=== PATIENT | female | born 1975 | race Caucasian/White ===

== ENCOUNTER → 2018-02-15 13:26 | Outpatient (CLI) | payer OTHER, SELFPAY ==
[2018-02-15 15:36] LABS: Mean Corp Hgb Conc 31.7 g/gl (32-36); Mean Corpuscular Hgb 26.2 pg (27.0-32.0); Mean Corpuscular Volume 82.5 fL (81-99); Mean Platelet Vol. 10.5 fl (6.2-12.0); Platelet Count 263 K/mm3 (150-450); RBC Distribution Width CV 15.4 % (11.6-14.6); RBC Distribution Width SD 46.1 fl (35.1-43.9); Red Blood Count 4.97 M/mm3 (4.2-5.4); White Blood Count 6.7 K/mm3 (4.4-11.0)
[2018-02-15 15:42] LABS: Scan Indicated on CBC? Y/N NO
[2018-02-15 15:53] LABS: Thyroid Stim Hormone (TSH) 1.71 uIU/mL (0.358-3.74)
[2018-02-15 16:05] LABS: Hemoglobin A1c 5.6 % (4.2-6.3)
[2018-02-20 13:06] LABS: HPV Reflexed? NOT INDICATED
== END ==
PROVIDERS: Visit Provider Obstetrics & Gynecology
DX: Z12.4 Encounter for screening for malignant neoplasm of cervix (principal); Z00.00 Encounter for general adult medical examination without abnormal findings
CPT/HCPCS: 36415; 83036; 84443; 85027; 87624; 88175; G0145

== ENCOUNTER → 2018-05-04 10:55 | Outpatient (CLI) | payer OTHER, SELFPAY ==
[2018-05-04 13:50] LABS: Pregnancy, Serum, hCG Quali. POSITIVE Negative (0-9 Nonpreg)
== END ==
PROVIDERS: Visit Provider Obstetrics & Gynecology
DX: N91.2 Amenorrhea, unspecified (principal)
CPT/HCPCS: 36415; 84702; 84703

== ENCOUNTER → 2018-05-11 13:43 | Outpatient (CLI) | payer OTHER, SELFPAY ==
[2018-05-11 17:24] LABS: Absolute Lymphocyte Count 1.79 X10^3/ul (0.83-4.51); Basophil# 0.01 X10^3/uL; Basophil% 0.2 % (0-1); Eosinophil# 0.09 X10^3/uL; Eosinophils% 1.4 % (0-5); Hematocrit 38.2 % (37-47); Hemoglobin 11.7 g/dl (12.0-15.0); Lymphocyte # 1.79 X10^3/ul (4.0); Lymphocyte % 27.9 % (19-41); Mean Corp Hgb Conc 30.6 g/gl (32-36); Mean Corpuscular Hgb 25.1 pg (27.0-32.0); Mean Platelet Vol. 10.7 fl (6.2-12.0); Monocyte# 0.53 X10^3/uL; Monocyte% 8.3 % (0-10); Neutrophil # 3.99 X10^3/uL (2.7-7.7); Platelet Count 242 K/mm3 (150-450); RBC Distribution Width CV 15.6 % (11.6-14.6); RBC Distribution Width SD 46.3 fl (35.1-43.9); Red Blood Count 4.66 M/mm3 (4.2-5.4); White Blood Count 6.4 K/mm3 (4.4-11.0)
[2018-05-11 17:27] LABS: POSITIVE COUNT NO; POSITIVE DIFFERENTIAL NO; POSITIVE MORPHOLOGY NO
[2018-05-11 18:16] LABS: HIV - WCH Non-Reactive (Nonreactive); Rubella IgG 262.2 IU/mL
[2018-05-12 07:39] LABS: Prenatal RPR NONREACTIVE (NONREACTIVE)
[2018-05-13 13:07] LABS: HEPATITIS B SURFACE AG Negative (Negative); Hep C Antibodies <0.1 s/co ratio (0.0-0.9)
== END ==
PROVIDERS: Visit Provider Obstetrics & Gynecology
DX: Z34.81 Encounter for supervision of other normal pregnancy, first trimester (principal)
CPT/HCPCS: 36415; 80307; 81002; 84443; 85025; 86703; 86762; 86803; 87340

== ENCOUNTER → 2018-10-06 06:56 | Outpatient (CLI) | payer OTHER, SELFPAY ==
[2018-10-06 07:34] LABS: Glucose GTT-Gestation. Fasting 92 mg/dL (<105)
[2018-10-06 09:26] LABS: Glucose GTT-Gestational 1 Hr 168 mg/dL (<190)
[2018-10-06 10:35] LABS: Glucose GTT-Gestational 2 Hr 134 mg/dL (<165)
[2018-10-06 11:49] LABS: Glucose GTT-Gestational 3 Hr 98 L (<145)
== END ==
PROVIDERS: Family Provider Family Medicine; PCP Family Medicine; Referring Provider Obstetrics & Gynecology; Visit Provider Obstetrics & Gynecology
DX: O24.912 Unspecified diabetes mellitus in pregnancy, second trimester (principal); Z3A.00 Weeks of gestation of pregnancy not specified
CPT/HCPCS: 36415; 82951; 82952

== ENCOUNTER 2018-11-15 13:05 | Outpatient (CLI) | payer OTHER, SELFPAY ==
[2018-11-15 13:21] VITALS: BMI 37.9
[2018-11-15 13:55] LABS: Hematocrit 39.8 % (37-47); Mean Corp Hgb Conc 32.7 g/dL (32-36); Mean Corpuscular Hgb 30.7 pg (27.0-32.0); Mean Corpuscular Volume 93.9 fL (81-99); Mean Platelet Vol. 9.7 fl (6.2-12.0); POSITIVE MORPHOLOGY YES; Platelet Count 161 K/mm3 (150-450); RBC Distribution Width SD 74.2 fl (35.1-43.9); Red Blood Count 4.24 M/mm3 (4.2-5.4); White Blood Count 7.9 K/mm3 (4.4-11.0)
[2018-11-15 14:00] LABS: International Normalized Ratio 0.9; Prothrombin Time (Protime)PT. 12.3 SECONDS (11.7-14.9)
[2018-11-15 14:01] LABS: Partial Thromboplast Time 24.5 Seconds (24.1-36.2)
[2018-11-15 14:10] LABS: Scan Indicated on CBC? Y/N YES- FLAGS NOTED
[2018-11-15 14:25] LABS: AST(SGOT) 20 U/L (15-37); Alanine Aminotransfer ALT/SGPT 33 U/L (13-56); Creatinine, Serum 0.57 mg/dL (0.55-1.02); EST Glomerular Filtration Rate 125 mL/min (>60); Est Glom Filt Rate - Afr Amer 151 mL/min (>60); Estimated Creatinine Clearance 113.29 ml/min; Uric Acid 4.7 mg/dL (2.6-6.0)
[2018-11-15 16:01] LABS: Protein, Urine (Random) 8.6 mg/dL (<11.9); Protein:Creat Ratio 345 mg/g CRE (0-200)
--- NOTE | 2018-12-01 08:50 | OB.TRI.NOTE ---
History of Present Illness Date of Service: 11/15/18 Was patient seen by the physician?: No Reason For Visit: R/O [facility] Date of Service: 11/15/18 Final ALDO: 12/11/18 Final ALDO Source: LMP Gestational age: 36 Weeks and 2 Days History of Present Illness: 36+ week intrauterine presents to labor and delivery for monitoring due to elevated blood pressures in the office. care has otherwise been uneventful except the patient had a prior section. Allergies pinapple Allergy (Uncoded 01/15/15 11:52) Rash Laboratory Studies: Laboratory Tests 11/15/18 11/15/18 11/15/18 Range/Units 15:10 13:40 13:40 WBC (4.4-11.0) K/mm3 RBC (4.2-5.4) M/mm3 Hgb (12.0-15.0) g/dL Hct (37-47) % MCV (81-99) fL MCH (27.0-32.0) pg MCHC (32-36) g/dL RDW Std Deviation (35.1-43.9) fl RDW Coeff of Audelia (11.6-14.6) % Plt Count (150-450) K/mm3 MPV (6.2-12.0) fl Differential Comment PT 12.3 (11.7-14.9) SECONDS INR 0.9 APTT 24.5 (24.1-36.2) Seconds Creatinine 0.57 (0.55-1.02) mg/dL Estim Creat Clear Calc 113.29 ml/min Est GFR (MDRD) Af Amer 151 (>60) mL/min Est GFR (MDRD) Non-Af 125 (>60) mL/min Uric Acid 4.7 (2.6-6.0) mg/dL AST 20 (15-37) U/L ALT 33 (13-56) U/L U Random Total Protein 8.6 (<11.9) mg/dL Urine Creatinine 24.90 (NO RANGE EST.) mg/dL Protein/Creatinin Ratio 345 H (0-200) mg/g CRE 11/15/18 Range/Units 13:40 WBC 7.9 (4.4-11.0) K/mm3 RBC 4.24 (4.2-5.4) M/mm3 Hgb 13.0 (12.0-15.0) g/dL Hct 39.8 (37-47) % MCV 93.9 (81-99) fL MCH 30.7 (27.0-32.0) pg MCHC 32.7 (32-36) g/dL RDW Std Deviation 74.2 H (35.1-43.9) fl RDW Coeff of Audelia 22.0 H (11.6-14.6) % Plt Count 161 (150-450) K/mm3 MPV 9.7 (6.2-12.0) fl Differential Comment PT (11.7-14.9) SECONDS INR APTT (24.1-36.2) Seconds Creatinine (0.55-1.02) mg/dL Estim Creat Clear Calc ml/min Est GFR (MDRD) Af Amer (>60) mL/min Est GFR (MDRD) Non-Af (>60) mL/min Uric Acid (2.6-6.0) mg/dL AST (15-37) U/L ALT (13-56) U/L U Random Total Protein (<11.9) mg/dL Urine Creatinine (NO RANGE EST.) mg/dL Protein/Creatinin Ratio (0-200) mg/g CRE NST - FHR Rate Baby A NST Reactive:: Yes Uterine Activity:: Occasional contraction noted on the monitor. Impression/Plan 36+ week intrauterine with gestational hypertension. Pre-E work-up was benign. Reactive nonstress test. Released to home with routine follow-up in several days in the office.
== END 2018-11-15 16:20 | disposition home or self-care (01) ==
LOC: WPOUT 13:10 → WP 13:10
PROVIDERS: Family Provider Family Medicine; PCP Family Medicine; Referring Provider Obstetrics & Gynecology; Visit Provider Obstetrics & Gynecology
DX: O13.3 Gestational [pregnancy-induced] hypertension without significant proteinuria, third trimester (principal); Z3A.36 36 weeks gestation of pregnancy; O34.219 Maternal care for unspecified type scar from previous cesarean delivery
CPT/HCPCS: 59025; 59050; 82565; 82570; 84156; 84450; 84460; 84550; 85027; 85610; 85730; 99218; G0378

== ENCOUNTER → 2018-11-20 12:48 | Outpatient (CLI) | payer OTHER, SELFPAY ==
[2018-11-15 13:21] VITALS: BMI 37.9
[2018-11-20 13:14] LABS: Hematocrit 40.1 % (37-47); Hemoglobin 13.2 g/dL (12.0-15.0); Mean Corp Hgb Conc 32.9 g/dL (32-36); Mean Corpuscular Hgb 31.6 pg (27.0-32.0); Mean Corpuscular Volume 95.9 fL (81-99); Mean Platelet Vol. 10.2 fl (6.2-12.0); POSITIVE MORPHOLOGY YES; Platelet Count 180 K/mm3 (150-450); RBC Distribution Width CV 21.4 % (11.6-14.6); RBC Distribution Width SD 75.4 fl (35.1-43.9); Red Blood Count 4.18 M/mm3 (4.2-5.4); White Blood Count 7.2 K/mm3 (4.4-11.0)
[2018-11-20 13:16] LABS: Scan Indicated on CBC? Y/N YES- FLAGS NOTED
[2018-11-20 13:35] LABS: BUN 9 mg/dL (7-18); Creatinine, Serum 0.63 mg/dL (0.55-1.02); Differential Comment SCANNED; Glucose 74 mg/dL (74-106)
[2018-11-20 13:36] LABS: ALB/GLOB Ratio 0.6 RATIO (0.9-2.4); AST(SGOT) 14 U/L (15-37); Alanine Aminotransfer ALT/SGPT 27 U/L (13-56); Albumin, Serum 2.6 g/dL (3.2-5.0); Alkaline Phosphatase 166 U/L (45-117); Anion Gap 8 (5-15); BUN/Creat Ratio 14.2 RATIO (10-20); Calcium,Total 10.4 mg/dL (8.5-10.1); Chloride 107 mmol/L (98-107); EST Glomerular Filtration Rate 110 mL/min (>60); Est Glom Filt Rate - Afr Amer 133 mL/min (>60); Protein, Total 6.6 g/dL (6.4-8.2); Sodium Level 139 mmol/L (136-145); Uric Acid 5.1 mg/dL (2.6-6.0)
== END ==
PROVIDERS: Visit Provider Obstetrics & Gynecology
DX: O13.9 Gestational [pregnancy-induced] hypertension without significant proteinuria, unspecified trimester (principal); Z3A.00 Weeks of gestation of pregnancy not specified
CPT/HCPCS: 36415; 80053; 84550; 85027

== ENCOUNTER 2018-12-01 10:05 | Inpatient (IN) | payer SELFPAY ==
[2018-12-01] VITALS (17 sets, daily range): BP systolic 108–159; BP diastolic 68–101; PULSE 74–94; RESP 14–18; TEMP 36.3–37.2; O2SAT 94–100; BMI 38.5
[2018-12-01] MEDS: Lactated Ringers 1,000 ML 999 ML IV (10:55)
[2018-12-01 11:14] LABS: Absolute Lymphocyte Count 1.71 X10^3/uL (0.83-4.51); Absolute Neutrophil Count 5.5 X10^3/uL (2.0-7.7); Basophil# 0.02 X10^3/uL; Basophil% 0.3 % (0-1); Eosinophil# 0.05 X10^3/uL; Eosinophils% 0.6 % (0-5); Hematocrit 41.5 % (37-47); Hemoglobin 13.7 g/dL (12.0-15.0); Lymphocyte # 1.71 X10^3/ul (4.0); Lymphocyte % 21.6 % (19-41); Mean Platelet Vol. 10.1 fl (6.2-12.0); Monocyte# 0.57 X10^3/uL; Monocyte% 7.2 % (0-10); NRBC Flagged by Analyzer 0 % (0-5); Neutrophil # 5.47 X10^3/uL (2.7-7.7); POSITIVE MORPHOLOGY YES; Platelet Count 173 K/mm3 (150-450); RBC Distribution Width SD 71.4 fl (35.1-43.9); Red Blood Count 4.28 M/mm3 (4.2-5.4); White Blood Count 7.9 K/mm3 (4.4-11.0)
[2018-12-01 11:17] LABS: Differential Indicated SCAN CRITERIA MET
[2018-12-01 11:24] LABS: Prothrombin Time (Protime)PT. 12.6 SECONDS (11.7-14.9)
[2018-12-01] MEDS: Lactated Ringers 1,000 ML 150 ML IV (11:58)
[2018-12-01] MEDS: Sodium Citrate/Citric Acid 30 ML UDC PO (11:58)
[2018-12-01] MEDS: Cefazolin 2 GM in 0.9% Normal Saline 100 ML IV (12:25)
--- NOTE | 2018-12-01 13:42 | OP.PCM_ITS ---
Delivery Classification: Scheduled Final ALDO: 12/11/18 Final ALDO Source: US <20 weeks Gestational age: 38 Weeks and 4 Days Indications: Gestational Hypertension, Prior Section, Desires Permanent Sterilization Description of Procedure: Surgeon: Eric Carrillo MD, FACOG Dispatcher Motor Vehicle: JOSEP Bryan Anesthesia: Denise Acuna CRNA Anesthesia: Spinal with Duramorph Pre-op Diagnosis: Prior Section, Gestational Hypertension, Desires Permanent Sterilization Post-Op Diagnosis: - -Prior Section, Gestational Hypertension, Desires Permanent Sterilization, Polyhydramnios Procedure: Repeat Low Transverse Cervical Caesarean Section And Bilateral Tubal Occlusion with Filshie Clips Findings: Viable male infant with Apgars of/9 in caput anterior presentation with clear amniotic fluid and normal three-vessel placenta. Copious amounts of fluid was noted. Indication: This is a 42-year-old who presents for a repeat at 38+ weeks gestation. Patient has had issues with gestational hypertension for the last several weeks maintained with labetalol. Recently her blood pressures have been even more elevated except when resting on her left side and she has started having headaches last few days. Given this it was decided proceed with repeat section at this time. care has otherwise been uneventful. The patient has been counseled regarding the risk and indications of this procedure including the possibility of bleeding infection and injury to surrounding structures such as bowel bladder. We also discussed the permanent nature of the tubal, the failure rate of 1 to 2%, and the availability of other nonpermanent control options. All questions were answered. Procedure: Patient was taken to the operating room where after spinal anesthesia was placed, the patient was prepped and draped in usual sterile fashion and a Bray catheter was placed. The abdomen was entered through the patient's prior Pfannenstiel incision and peritoneum was entered bluntly. After developing a bladder flap on the lower uterine segment a low transverse incision was made on the uterus and head was easily delivered onto the operative field the nose mouth and oropharynx were bulb suctioned. Subsequently a viable male infant was born with Apgars of 8/9. The was noted to cry move all extremities vigorously on the operative field. The umbilical cord was doubly clamped and ligated and handed to the nursery personnel who were present for the delivery. Placenta was delivered and noted to be 3 vessels and normal. Uterus was exteriorized and remaining placental tissue was removed. The uterus was then closed in 2 layers first with running locked 0 Vicryl suture followed by a second imbricating layer with 0 Vicryl suture. 0 Vicryl suture was then used in a horizontal mattress interrupted fashion to affect final hemostasis of the uterine incision line. Normal fallopian tubes and ovaries were visualized and Filshie clips were placed approximately 2 cm distal from the uterine fundus on each fallopian tube. The uterus was returned to the pelvis. Hemostasis was noted and rectus abdominis muscles were reapproximated in the midline with interrupted Number 0 Vicryl suture in a horizontal mattress fashion. Fascia was closed with running Number 1 PDS Strata fix suture. Subcutaneous tissue was irrigated with copious amouts of saline solution and then closed in 2 layers with running 3-0 Vicryl suture. Skin was closed with 4-0 monocryl suture in a running subcuticular fashion. Steri strips, telfa, and tape were placed across the incision. The patient tolerated the procedure well and was taken to the recovery room in satisfactory condition. Sponge, needle, and instrument counts were all reportedly correct. EBL was less than 500 cc. Cefotan 2 gms IV was given prior to the procedure. Spicemen to Pathology: None Complications: None Amniotic Fluid Description: Clear Placenta Disposition: [facility] Drain: Bray to straight drain Fluids Replaced: Crystalloid Cord Entanglement: None Cord Vessel Description: 3 Vessels Esitmated Blood Loss (ml): 500 cc Infant Gender: Male (1 minute): 8 (5 minute): 9 Pre-op Antibiotic Given: Cefotan 2gm IV x1 Pt instructed on risks of surgery: Bleeding, Infection, Failure Rate of 1 to 2%, Injury to surrounding structure(s) including bowel and bladder, Availability of other non-permanent control options Complications: None - Admit VTE Documentation VTE Present on Admission: Yes VTE Mechan Device Prophylaxis: SCD's
[2018-12-01] MEDS: Oxytocin 30 units/NS 500 ml 30 UNITS/500 ML IV.SOLN 167 UNITS IV (14:00)
[2018-12-01] MEDS: Nalbuphine 10 MG/ML Ampul 5 MG IV ×2 (17:36→20:53)
[2018-12-01] MEDS: Lactated Ringers 1,000 ML 100 ML IV (18:05)
[2018-12-01] MEDS: Ketorolac 30 MG/ML Syringe IV (19:17)
[2018-12-02] VITALS (10 sets, daily range): BP systolic 107–134; BP diastolic 56–88; PULSE 66–89; RESP 16–18; TEMP 35.9–36.7; O2SAT 96–100
[2018-12-02] MEDS: Ketorolac 30 MG/ML Syringe IV ×4 (00:08→19:14)
[2018-12-02] MEDS: 0.9% Saline Lock 10 ML Syringe 5 ML IV ×4 (00:09→19:14)
[2018-12-02 05:26] LABS: Hematocrit 37.3 % (37-47); Hemoglobin 12.2 g/dL (12.0-15.0); Mean Corp Hgb Conc 32.7 g/dL (32-36); Mean Corpuscular Hgb 32.3 pg (27.0-32.0); Mean Corpuscular Volume 98.7 fL (81-99); Mean Platelet Vol. 10.4 fl (6.2-12.0); POSITIVE MORPHOLOGY YES; Platelet Count 142 K/mm3 (150-450); RBC Distribution Width CV 20.2 % (11.6-14.6); Red Blood Count 3.78 M/mm3 (4.2-5.4); White Blood Count 8.3 K/mm3 (4.4-11.0)
[2018-12-02 05:27] LABS: Scan Indicated on CBC? Y/N YES- FLAGS NOTED
[2018-12-02 06:02] LABS: Differential Comment SCAN
[2018-12-02] MEDS: Hydrocortisone 2.5% Crm 1 APPLIC TOPICAL (07:59)
--- NOTE | 2018-12-02 11:19 | PCM.PN.OB ---
Subjective: Patient without complaints. Tolerating diet well. Positive flatus. Pain well controlled with minimal vaginal bleeding. Baby in the nursery for blood sugar issues. - Physical Exam Vital Signs Temp Pulse Resp BP Pulse Ox 97 F L 75 16 107/56 L 99 12/02/18 07:45 12/02/18 09:00 12/02/18 09:00 12/02/18 07:45 12/02/18 09:00 Oxygen Delivery Method Room Air Weight: 224 lb 3.2 oz Body Mass Index (BMI) 38.5 Intake and Output for Last 24 Hours 11/30/18 12/01/18 12/02/18 23:59 23:59 23:59 Intake Total 4250.83 / 4250.83 6 / 6 Output Total 2049 / 2049 1200 / 1200 Balance 2200.83 / 2200.83 -1194 / -1194 Laboratory Tests Past 24 Hrs 12/01/18 12/01/18 12/01/18 10:55 10:55 10:55 WBC RBC Hgb Hct MCV MCH MCHC RDW Std Deviation RDW Coeff of Audelia Plt Count MPV Differential Comment COMMENT PT 12.6 INR 1.0 APTT 24.0 L Blood Type O POSITIVE Antibody Screen NEGATIVE 12/02/18 05:15 WBC 8.3 RBC 3.78 L Hgb 12.2 Hct 37.3 MCV 98.7 MCH 32.3 H MCHC 32.7 RDW Std Deviation 73.0 H RDW Coeff of Audelia 20.2 H Plt Count 142 L MPV 10.4 Differential Comment SCAN PT INR APTT Blood Type Antibody Screen Wound is clean, dry, intact. Good urine output. Hemoglobin okay. Medical Necessity - Tobacco Use Smoking Status: Never smoker Assessment/Plan All Active Problems Pre-eclampsia added to pre-existing hypertension (Acute) Doing well post operative day #1 status post repeat and tubal ligation. Continuing present care.
[2018-12-03] MEDS: 0.9% Saline Lock 10 ML Syringe 5 ML IV ×3 (00:59→13:43)
[2018-12-03] MEDS: Ketorolac 30 MG/ML Syringe IV ×3 (00:59→13:43)
[2018-12-03 01:06] VITALS: BP 131/79; PULSE 73; RESP 18; TEMP 36.1
[2018-12-03 08:13] VITALS: BP 124/86; PULSE 82; RESP 16; TEMP 36.7; O2SAT 96
--- NOTE | 2018-12-03 11:32 | PCM.PN.OB ---
Subjective: Patient without complaints. Tolerating diet well. Positive flatus. Minimal vaginal bleeding. Wants to go home later today if the baby is able to go. Baby coming off IV in the next few hours. - Physical Exam Vital Signs Temp Pulse Resp BP Pulse Ox 98.0 F 82 16 124/86 H 96 12/03/18 08:13 12/03/18 08:13 12/03/18 08:13 12/03/18 08:13 12/03/18 08:13 Oxygen Delivery Method Room Air Weight: 224 lb 3.2 oz Body Mass Index (BMI) 38.5 Intake and Output for Last 24 Hours 12/01/18 12/02/18 12/03/18 23:59 23:59 23:59 Intake Total 4250.83 / 4250.83 6 / 6 Output Total 2049 / 2049 1200 / 1200 Balance 2200.83 / 2200.83 -1194 / -1194 Medical Necessity - Tobacco Use Smoking Status: Never smoker Assessment/Plan All Active Problems Pre-eclampsia added to pre-existing hypertension (Acute) Doing well post operative day #2 status post repeat section and tubal ligation. Home-going instructions given. Will discharge to home if baby is able to go.
[2018-12-03 13:38] VITALS: BP 142/91; PULSE 81; RESP 16; TEMP 36.8; O2SAT 98
[2018-12-03 16:18] VITALS: BP 140/82; PULSE 75
[2018-12-03] MEDS: Ibuprofen 600 MG Tablet PO (19:23)
[2018-12-03 20:05] VITALS: BP 136/74; BP 144/81; PULSE 75; RESP 18; TEMP 36.4
[2018-12-04 04:30] VITALS: BP 151/86; BP 152/85; PULSE 67; RESP 18; TEMP 36.3
[2018-12-04 06:00] VITALS: BP 146/79
[2018-12-04] MEDS: Ibuprofen 600 MG Tablet PO (08:35)
[2018-12-04 09:04] VITALS: BP 154/89; PULSE 80; RESP 18; TEMP 36.8
--- NOTE | 2018-12-04 09:08 | NURSING ---
0904- redness noted around perimeter of incision due to tape, denies itching or discomfort
--- NOTE | 2018-12-04 11:51 | PCM.PN.OB ---
Subjective: Patient without complaints. Tolerating diet well. Denies PIH symptoms. Baby needs to stay until tomorrow evening at minimum. - Physical Exam Vital Signs Temp Pulse Resp BP Pulse Ox 98.2 F 80 18 154/89 H 98 12/04/18 09:04 12/04/18 09:04 12/04/18 09:04 12/04/18 09:04 12/03/18 13:38 Oxygen Delivery Method Room Air Weight: 224 lb 3.2 oz Body Mass Index (BMI) 38.5 Intake and Output for Last 24 Hours 12/02/18 12/03/18 12/04/18 23:59 23:59 23:59 Intake Total 6 / 6 Output Total 1200 / 1200 Balance -1194 / -1194 Blood pressures moderately elevated. Good urine output. Medical Necessity - Tobacco Use Smoking Status: Never smoker Assessment/Plan All Active Problems Pre-eclampsia added to pre-existing hypertension (Acute) Doing well postoperative day #3 status post repeat section and tubal ligation. Will start low-dose labetalol as prior to delivery. Otherwise, continue present care.
[2018-12-04] MEDS: Labetalol 100 MG Tablet PO (12:48)
[2018-12-04 13:15] VITALS: BP 146/86; PULSE 80; RESP 18; TEMP 36.3
--- NOTE | 2018-12-04 13:46 | NURSING ---
1315- discharged to courtesy room
--- NOTE | 2018-12-17 06:46 | PCM.DC.BLA ---
Discharge Summary Date of Admission: 01/01/19 Date of Discharge: 01/04/19 Summary: Admission diagnosis: Prior Section, Desires Permanent Sterilization, and Gestational Hypertension Discharge diagnosis: Prior Section, Desires Permanent Sterilization, gestational Hypertension Procedure: Repeat Low Transverse Cervical Section and Bilateral Tubal Occlusion HPI: Uneventful care except for gestational hypertension. PE: Unremarkable. Hospital Course: The patient is a 42 year old who presented to L and D at 38+ weeks gestation. She subsequently had a repeat for prior section and gestational hypertension. Postoperatively she did well demonstrating a stable HGB on POD 1 and bowel fxn by POD 3 at which time it was felt she was ready for discharge. Homegoing Instruction: She was instructed not to drive for several days or if using narcotic pain medication, not to put anything in the vagina for 4 weeks, not to lift >25 lbs for 6 weeks and to call the office for an appointment in 2 weeks and 6 weeks. Discharge Medications: She was given a prescription for Oxycodone and Colace and also plans to use Aleve or Motrin or Tylenol at home as needed for pain and constipation. She was also instructed to continue her labetalol at home for her hypertension. - Physical Exam Vital Signs Temp Pulse Resp BP Pulse Ox 97.4 F L 80 18 146/86 H 98 12/04/18 13:15 12/04/18 13:15 12/04/18 13:15 12/04/18 13:15 12/03/18 13:38 Oxygen Delivery Method Room Air Weight: 224 lb 3.2 oz Body Mass Index (BMI) 38.5
--- NOTE | 2018-12-17 06:49 | DCINST_ITS ---
Discharge Diet: No Restrictions Discharge Activity: May not drive while taking narcotic pain medications., May Shower, May Take a Tub Bath May resume sexual activity in: 4-6 weeks Lifting Restrictions: 20 pounds Additional Activity Instructions:: Nothing in the vagina for 4-6 weeks. You may return to work/school in 6 weeks. Call your doctor if your incision/area has: Continuous Slow Oozing, Sudden Increased Bleeding, Increased Pain/ Swelling, Increased Redness, Foul Smelling Discharge Call your doctor if you observe: Fever of 101 or Higher, Inability to urinate, Inability to have a bowel movement, Using more than one pad per hour Instructions: Section () Additional Instructions: If you experience any of the following, contact your healthcare provider. * Bleeding that soaks a pad every hour for 2 hours * Fever 100.4 or higher * Unrelieved incision or abdominal pain * Swelling, redness, discharge or bleeding from your incision or episiotomy site * Your incision begins to separate * Problems urinating (including inability to urinate or burning while urinating). * Visual changes * Severe headache * Flu-like symptoms * Pain or redness in one of both of your breasts * Pain, warmth, tenderness or swelling in your legs, especially the calf area * Frequent nausea and vomiting * Symptoms of depression or anxiety If you experience any of the following, call 911 or go to the nearest Emergency Room. * Chest pain * Problems breathing * Seizure activity * Partial or complete paralysis of a body part, slurred speech, weakness or drooping of the face, or a sudden inability to walk or hold your balance Allergies/Adverse Reactions: Allergies pinapple Allergy (Mild, Uncoded 12/01/18 11:27) Rash Medications to take at Discharge Vits [Prenatabs FA] 1 tablet PO DAILY 01/15/15 RX: Labetalol [Trandate (Beta Gagan)] 100 mg PO BID 11/15/18 Docusate Sodium [Colace] 100 mg PO BID PRN PRN #60 cap 12/01/18 Iron 325 mg PO DAILY 12/01/18 The following prescriptions were given: Docusate Sodium [Colace] 100 mg PO BID PRN PRN #60 cap PRN Reason: Constipation Prescription Printed Follow-Up: Call to make an appointment with your doctor for an incision check in 1-2 weeks. You will also need a 6 week post- follow up appointment. Test results from this visit will be discussed in further detail at your follow- up appointment, if applicable. Please Follow Up With: Eric Carrillo MD - [phone] When: Call to make an appointment for an incision check in 2 weeks.
== END 2018-12-04 13:15 | disposition home or self-care (01) | DRG 785 ==
PROVIDERS: Admitting Provider Obstetrics & Gynecology; Referring Provider Obstetrics & Gynecology; Visit Provider Obstetrics & Gynecology
PROC: 10D00Z1 Extraction of Products of Conception, Low, Open Approach (ICD-10-PCS; CPT 59514; principal; 2018-12-01 11:45)
DX: O65.5 Obstructed labor due to abnormality of maternal pelvic organs (principal); O13.4 Gestational [pregnancy-induced] hypertension without significant proteinuria, complicating childbirth; O34.211 Maternal care for low transverse scar from previous cesarean delivery; O26.23 Pregnancy care for patient with recurrent pregnancy loss, third trimester; O30.003 Twin pregnancy, unspecified number of placenta and unspecified number of amniotic sacs, third trimester; Z3A.38 38 weeks gestation of pregnancy; Z30.2 Encounter for sterilization; Z37.3 Twins, one liveborn and one stillborn
CPT/HCPCS: 85025; 85027; 85610; 85730; 86850; 86900; 86901; 99218; J7120; A4216; G0378; J2405

== ENCOUNTER → 2021-12-23 | Outpatient (CLI) | payer BC, SELFPAY ==
[2021-12-23 12:02] LABS: Absolute Lymphocyte Count 2.32 X10^3/uL (0.83-4.51); Absolute Neutrophil Count 2.7 X10^3/uL (2.0-7.7); Basophil# 0.01 X10^3/uL; Basophil% 0.2 % (0-1); Eosinophil# 0.05 X10^3/uL; Eosinophils% 0.9 % (0-5); Hematocrit 41.1 % (37-47); Hemoglobin 12.6 g/dL (12.0-15.0); Lymphocyte # 2.32 X10^3/ul (0.83-4.51); Lymphocyte % 43.2 % (19-41); Mean Corp Hgb Conc 30.7 g/dL (32-36); Mean Corpuscular Volume 81.5 fL (81-99); Mean Platelet Vol. 10.4 fl (6.2-12.0); Monocyte# 0.31 X10^3/uL; Monocyte% 5.8 % (0-10); NRBC Flagged by Analyzer 0 % (0-5); Neutrophil # 2.67 X10^3/uL (2.7-7.7); Neutrophil % 49.7 % (47-70); Platelet Count 207 K/mm3 (150-450); RBC Distribution Width CV 15.7 % (11.6-14.6); RBC Distribution Width SD 46.2 fl (35.1-43.9); Red Blood Count 5.04 M/mm3 (4.2-5.4); White Blood Count 5.4 K/mm3 (4.4-11.0)
[2021-12-23 12:17] LABS: Estradiol 85.5 pg/mL; Follicle Stimulating Hormone 4.7 mIU/mL; Luteinizing Hormone 11.6 mIU/mL; T4 Free Direct 0.78 ng/dL (0.76-1.46); Thyroid Stim Hormone (TSH) 1.78 uIU/mL (0.358-3.74)
== END | disposition home or self-care (01) ==
LOC: WOBLAB 11:17
PROVIDERS: Visit Provider Obstetrics & Gynecology
DX: N93.9 Abnormal uterine and vaginal bleeding, unspecified (principal)
CPT/HCPCS: 82670; 83001; 83002; 84439; 84443; 85025

== ENCOUNTER → 2022-01-07 | Outpatient (CLI) | payer BC, SELFPAY ==
--- NOTE | 2022-01-07 11:45 | EMB_PTH ---
PATIENT: AGGIE DONG LOC: [facility] U#:[id number] AGE/SX: 46/F ROOM: RE01/07/[address]: Dr. Ifeanyi Surehs MD : 1975 BED: DIS: 01/07/2022 SPEC #: [id number] RECD: 01/07/22 11:49 STATUS: BLACK REBarbi #: [id number] SERENITY: 01/07/22 11:[address]: Ifeanyi Suresh DEPT: SURGICAL PATHOLOGY RECD BY: Cassia Lai Tissues: Endometrium, NOS Procedures: Surgery Specimen Level IV HEADER OPERATION: Endometrial biopsy PRE-OP DIAGNOSIS: Abnormal bleeding TISSUE SUBMITTED: Endometrial biopsy MICROSCOPIC DIAGNOSIS Endometrium, biopsy: Secretory endometrium. AM:josé 01/08/2022 MICROSCOPIC DESCRIPTION Slides are reviewed. GROSS DESCRIPTION Received in fixative is one container labeled with the patient's name and designated endometrial biopsy. The specimen consists of multiple irregular fragments of rosen-pink soft tissue that in aggregate measure 3 x 2.5 x 0.3 cm. The specimen is totally submitted in one cassette. / SJ:rg 01/07/2022 TC:5 CPT: 64887
== END | disposition home or self-care (01) ==
LOC: LABSPEC 11:40
PROVIDERS: Visit Provider Obstetrics & Gynecology
DX: N93.9 Abnormal uterine and vaginal bleeding, unspecified (principal)
CPT/HCPCS: 88305

== ENCOUNTER → 2022-08-30 | Outpatient (CLI) | payer BC, SELFPAY ==
--- NOTE | 2022-08-30 16:07 | RAD_ITS ---
EXAM: XR LEFT FOOT COMPLETE, 3 OR MORE VIEWS CLINICAL INDICATION: ANKLE PAIN TECHNIQUE: Frontal, lateral and oblique views of the left foot. COMPARISON: Left ankle radiographs of this date. FINDINGS: BONES/JOINTS: Small plantar calcaneal spur. No acute fracture. No subluxation. Normal alignment. Preservation of the joint space. No sclerotic or destructive changes observed. SOFT TISSUES: Unremarkable. No soft tissue swelling or gas. No radiopaque foreign body. RAD/Foot min 3 Views IMPRESSION: Small plantar calcaneal spur, otherwise negative. No acute osseous or articular abnormality identified. Electronically Signed: Campos Nunez MD at 22:18 EDT ,
--- NOTE | 2022-08-30 16:08 | RAD_ITS ---
EXAM: XR LEFT TIBIA AND FIBULA, 2 VIEWS CLINICAL INDICATION: pain TECHNIQUE: Frontal and lateral views of the left tibia and fibula. COMPARISON: Ankle radiographs of this date. FINDINGS: BONES/JOINTS: Small plantar calcaneal spur. No acute fracture. No subluxation. Normal alignment. Preservation of the joint space. No sclerotic or destructive changes observed. SOFT TISSUES: Unremarkable. No soft tissue swelling or gas. No radiopaque foreign body. RAD/Tibia & Fibula 2 Views IMPRESSION: Small plantar calcaneal spur. No acute osseous abnormality. Electronically Signed: Campos Nunez MD at 22:16 EDT ,
--- NOTE | 2022-08-30 16:18 | RAD_ITS ---
EXAM: XR LEFT ANKLE COMPLETE, 3 OR MORE VIEWS CLINICAL INDICATION: PAIN TECHNIQUE: Frontal, lateral and oblique views of the left ankle. COMPARISON: Left tibia/fibula radiographs and left foot radiographs of this date. FINDINGS: BONES/JOINTS: Small plantar calcaneal spur. No acute fracture. No subluxation. Normal alignment. Preservation of the joint space. No sclerotic or destructive changes observed. SOFT TISSUES: Unremarkable. No soft tissue swelling or gas. No radiopaque foreign body. RAD/Ankle min 3 Views IMPRESSION: Small plantar calcaneal spur. No acute abnormality. Electronically Signed: Campos Nunez MD at 22:17 EDT ,
== END | disposition home or self-care (01) ==
PROVIDERS: PCP Family Medicine; Referring Provider Family Medicine; Visit Provider Family Medicine
DX: S82.402A Unspecified fracture of shaft of left fibula, initial encounter for closed fracture (principal); M25.579 Pain in unspecified ankle and joints of unspecified foot
CPT/HCPCS: 73590; 73610; 73630

== ENCOUNTER → 2023-03-09 | Outpatient (CLI) | payer BC, SELFPAY ==
[2023-03-09 10:36] LABS: Hematocrit 38.2 % (37-47); Hemoglobin 10.7 g/dL (12.0-15.0); Mean Corpuscular Hgb 21.2 pg (27.0-32.0); Mean Corpuscular Volume 75.6 fL (81-99); Mean Platelet Vol. 10.6 fl (6.2-12.0); Platelet Count 232 K/mm3 (150-450); RBC Distribution Width SD 50.9 fl (35.1-43.9); Red Blood Count 5.05 M/mm3 (4.2-5.4); White Blood Count 4.9 K/mm3 (4.4-11.0)
[2023-03-09 10:42] LABS: Vitamin D,25 Hydroxy 16.9 ng/mL
[2023-03-09 10:51] LABS: Hemoglobin A1c 5.2 % (3.8-5.6)
[2023-03-09 11:02] LABS: ALB/GLOB Ratio 1.1 RATIO (0.9-2.4); AST(SGOT) 25 U/L (15-37); Alanine Aminotransfer ALT/SGPT 42 U/L (13-56); Albumin, Serum 3.9 g/dL (3.2-5.0); Alkaline Phosphatase 140 U/L (45-117); Anion Gap 3 (5-15); BUN 14 mg/dL (7-18); BUN/Creat Ratio 18.9 RATIO (10-20); Calcium,Total 10.4 mg/dL (8.5-10.1); Chloride 111 mmol/L (98-107); Cholesterol 219 mg/dL (200); Creatinine, Serum 0.74 mg/dL (0.55-1.02); EST Glomerular Filtration Rate 90 mL/min (>60); Est Glom Filt Rate - Afr Amer 109 mL/min (>60); Ferritin 5 ng/mL (8-252); Globulin 3.6 g/dL (2.2-4.2); Glucose 115 mg/dL (74-106); High Density Lipoprotein 60 mg/dL; Iron 17 ug/dL (50-170); Potassium 3.8 mmol/L (3.5-5.1); Protein, Total 7.5 g/dL (6.4-8.2); Sodium Level 139 mmol/L (136-145); Thyroid Stim Hormone (TSH) 1.22 uIU/mL (0.358-3.74); Triglycerides 52 mg/dL; Very Low Density Lipoprotein 10 mg/dL (5-40)
== END | disposition home or self-care (01) ==
LOC: MFPLAB 08:34
PROVIDERS: PCP Family Medicine; Visit Provider Family Medicine
DX: E66.9 Obesity, unspecified (principal); N92.0 Excessive and frequent menstruation with regular cycle; E28.2 Polycystic ovarian syndrome; Z13.220 Encounter for screening for lipoid disorders; Z13.21 Encounter for screening for nutritional disorder
CPT/HCPCS: 36415; 80053; 80061; 82306; 82533; 82728; 83036; 83540; 84443; 85027

== ENCOUNTER → 2023-03-18 | Outpatient (CLI) | payer BC, SELFPAY ==
--- NOTE | 2023-03-18 13:17 | BI_ITS ---
MAMMOGRAPHY - BILATERAL SCREENING REASON FOR EXAM: Female, 47 years old. Routine annual screening examination. PERTINENT HISTORY: Non-contributory. TECHNIQUE: Digital bilateral breast panakj (3D mammographic acquisition) in the CC and MLO projections. 2-D mediolateral oblique (MLO) and craniocaudad (CC) views of both breasts were obtained. CAD: Full Field Digital Mammography with Computer Added Detection was performed. COMPARISON: None. Baseline examination. FINDINGS: Breast Composition: There are scattered areas of fibroglandular density. There are no dominant masses or suspicious calcifications. Small benign-appearing bilateral axillary nodes. No other significant abnormalities are identified. BI/SCRN MAMM (CAD)W/PANKAJ BILAT IMPRESSION: Negative screening mammogram. Yearly followup mammogram recommended. (A) ASSESSMENT CATEGORY: BIRADS Category 2: Benign. A letter regarding these results will be sent to the patient by the facility within 30 days. Approximately 10% of breast cancers are not detected by mammography. A normal mammogram should not delay biopsy of a clinically suspicious abnormality. [id number] Electronically Signed: Meir Burnett MD at 14:23 EST ,
== END | disposition home or self-care (01) ==
LOC: OPBI 13:15
PROVIDERS: PCP Family Medicine; Referring Provider Family Medicine; Visit Provider Family Medicine
DX: Z12.31 Encounter for screening mammogram for malignant neoplasm of breast (principal)
CPT/HCPCS: 77063; 77067

== ENCOUNTER 2023-04-25 12:57 | Outpatient (RCR) | payer BC, SELFPAY | END 2023-05-11 23:59 | LOC: NS 12:57 | PROVIDERS: PCP Family Medicine; Referring Provider Family Medicine; Visit Provider Family Medicine | DX: Z71.3 Dietary counseling and surveillance (principal); E66.9 Obesity, unspecified | CPT/HCPCS: 97802 ==

== ENCOUNTER 2023-05-23 12:57 | Outpatient (RCR) | payer BC, SELFPAY | END 2023-06-09 23:59 | LOC: NS 12:57 | PROVIDERS: PCP Family Medicine; Referring Provider Family Medicine; Visit Provider Family Medicine | DX: Z71.3 Dietary counseling and surveillance (principal); E66.9 Obesity, unspecified; Z68.31 Body mass index [BMI] 31.0-31.9, adult | CPT/HCPCS: 97803 ==

== ENCOUNTER 2023-06-20 13:10 | Outpatient (RCR) | payer BC, SELFPAY | END 2023-07-10 23:59 | LOC: NS 13:10 | PROVIDERS: PCP Family Medicine; Referring Provider Family Medicine; Visit Provider Family Medicine | DX: Z71.3 Dietary counseling and surveillance (principal); E66.9 Obesity, unspecified; Z68.31 Body mass index [BMI] 31.0-31.9, adult | CPT/HCPCS: 97803 ==

== ENCOUNTER 2024-07-09 16:02 | Emergency (ER) | payer BC, SELFPAY ==
[2024-07-09 16:03] VITALS: BP 131/100; PULSE 131; RESP 115; TEMP 39.3; O2SAT 100
--- NOTE | 2024-07-09 16:45 | EDS_ITS ---
HPI History of Present Illness Chief Complaint: General Illness Informant: patient Onset/Context/Timing Onset: Days Context: Gradual Onset Timing: Continuous Quality: Aching Location: Generalized Worsened by: Nothing Relieved by: Laying in a bathtub Narrative Narrative: Patient presents with generalized aching and chills. Patient states she was seen at urgent care yesterday was diagnosed with a urinary tract infection. Patient states she has been taking the antibiotics that were prescribed. Patient states she does not feel any better. Patient also admits to some rhinorrhea. Patient admits to headache and back pain. Patient admits to some nausea, vomiting, and abdominal pain. Patient denies any chest pain or shortness of breath. [facility] Medical History No active medical problems no medical history Home Medications ?Medication ?Instructions ?Recorded ?Last Taken ?Type nitrofurantoin 100 mg PO Q12H 7 days #14 ca ps 07/08/24 Unknown Rx monohydrate/macrocrystals 100 mg capsule (Macrobid) Allergy/AdvReac Type Severity Reaction Status Date / Time pineapple Allergy Mild Rash Verified 07/09/24 16:03 Family History Other Heart disease Surgical History History of 2 sections Social History household members: spouse housing: house Smoking Status: Never smoker ROS ROS ED Constitutional Constitutional ED: Reports chills and subjective; Denies fever(s) Eyes Eyes: Denies blurry vision or change in vision ENT ENT ED: Reports rhinorrhea; Denies sore throat Cardiovascular Cardiovascular: Denies chest pain or palpitations Respiratory/Chest Respiratory/Chest: Denies cough or dyspnea Gastrointestinal Gastrointestinal: Reports abdominal pain, nausea and vomiting Genitourinary Genitourinary ED: Reports hematuria; Denies dysuria Musculoskeletal Musculoskeletal: Reports back pain; Denies neck pain Integumentary Denies abscess or rash Neurologic Neurologic: Reports headache(s); Denies weakness Allergic/Immunologic Allergic/Immunologic ED: Denies mouth swelling or urticaria EXAM Physical Exam Const Vital Signs: 07/09/24 16:03 07/09/24 16:25 07/09/24 17:35 Temperature 102.8 F H Temperature Source Oral Pulse Rate 131 H Pulse Rate [Lying] 109 H Pulse Rate [Sitting (for 1 minute prior to obtaining)] 117 H Pulse Rate [Standing (for 1 minute prior to obtaining)] 121 H Respiratory Rate 115 H Respiratory Effort Normal Non-Labored Respiratory Pattern Normal Blood Pressure 131/100 H Blood Pressure [Lying] 119/66 Blood Pressure [Sitting (for 1 minute prior to obtaining)] 109/72 Blood Pressure [Standing (for 1 minute prior to obtaining)] 107/74 Blood Pressure Mean 110 Blood Pressure Mean [Lying] 83 Blood Pressure Mean [Sitting (for 1 minute prior to obtaining)] 84 Blood Pressure Mean [Standing (for 1 minute prior to obtaining)] 85 Pulse Ox 100 Oxygen Delivery Method Room Air 07/09/24 18:02 07/09/24 18:16 Temperature 99.4 F H Temperature Source Oral Pulse Rate Pulse Rate [Lying] Pulse Rate [Sitting (for 1 minute prior to obtaining)] Pulse Rate [Standing (for 1 minute prior to obtaining)] Respiratory Rate Respiratory Effort Respiratory Pattern Blood Pressure 106/62 Blood Pressure [Lying] Blood Pressure [Sitting (for 1 minute prior to obtaining)] Blood Pressure [Standing (for 1 minute prior to obtaining)] Blood Pressure Mean 76 Blood Pressure Mean [Lying] Blood Pressure Mean [Sitting (for 1 minute prior to obtaining)] Blood Pressure Mean [Standing (for 1 minute prior to obtaining)] Pulse Ox 97 Oxygen Delivery Method Room Air Positive well nourished and well developed General Appearance ED: well developed and NAD HEENT Reports moist mucous membranes Neck supple and no JVD Resp normal respiratory effort and clear to auscultation bilaterally Cardio regular rate and regular rhythm GI non-distended Palpation: soft and tender LLQ, RLQ and suprapubic; Negative for guarding or rebound tenderness present Neuro oriented x3, CN's II-XII intact bilaterally and no sensory deficits noted Sensorium / Orientation: alert Motor Exam: strength 5/5 throughout Psych mental status grossly normal MDM MDM MDM Narrative Medical decision making narrative: Differential diagnosis includes urinary tract infection, electrolyte abnormality, dehydration, viral illness, pneumonia, and bronchitis. CBC will be obtained to assess for leukocytosis and anemia. Basic metabolic profile will be obtained to assess for electrolyte abnormality and renal function. Chest x-ray will be obtained to assess for pneumonia and bronchitis. COVID-19, influenza, and RSV PCR will be obtained to assess for viral illness. Lab Data Attestation: I reviewed the patient's lab results. Lab results narrative: CBC was reviewed. There is a slight leukocytosis of 11.2. There is a mild anemia with a hemoglobin of 11.3 and hematocrit 33.7. Platelets were slightly low at 139. Basic metabolic profile showed a potassium of 3.1. The remainder is within normal limits. Labs: Laboratory Results - last 24 hr 07/09/24 16:53 WBC 11.2 H RBC 4.35 Hgb 11.3 L Hct 33.7 L MCV 77.5 L MCH 26.0 L MCHC 33.5 RDW Std Deviation 52.3 H RDW Coeff of [place] 18.8 H Plt Count 139 L MPV 10.6 Immature Gran % (Auto) 0.400 Neut % (Auto) 84.8 H Lymph % (Auto) 4.2 L [place] % (Auto) 10.4 H Eos % (Auto) 0.0 Baso % (Auto) 0.2 Absolute Neuts (auto) 9.5 H Absolute Lymphs (auto) 0.47 L Nucleated RBC % 0 Sodium 133 Potassium 3.1 L Chloride 99 Carbon Dioxide 21.6 Anion Gap 12 BUN 11 Creatinine 0.80 Estim Creat Clear Calc 89.57 Est GFR (MDRD) Non-Af 92 BUN/Creatinine Ratio 13.3 Glucose 115 H Calcium 10.3 Radiography Chest X-Ray - ED: 2 View, Read by ED Physician, Read by Radiologist and No Acute Disease Diagnostic Testing: Clinical Impression(s) from Imaging Studies Chest X-Ray 07/09/24 17:00 IMPRESSION: NEGATIVE CHEST Reading Location: [facility] PA and lateral chest x-ray was obtained. There are 2 views. On my independent interpretation, lung hatch are clear. There is normal cardiac silhouette. Bony thorax is normal. There is no acute process noted. Radiologist also interpreted the x-ray and agrees. Treatment and Re-Evaluation :: Patient was given a dose of Tylenol here. Patient was given IV fluids. Patient was given a dose of oral potassium here. Patient was advised of her findings. Patient was instructed to drink plenty of fluids. Patient was instructed to continue Tylenol as needed for any pain or fevers. Patient was instructed to finish her antibiotics as prescribed. Patient was instructed to follow-up with her primary care physician in 5 to 7 days. Patient understood and was agreeable with the plan. All questions were answered. Discharge Plan Triage Chief Complaint: General Illness ED Provider: Bo Ring Dx/Rx/DC Orders Clinical Impression: UTI (urinary tract infection), Fever, Hypokalemia Instructions: ED Hypokalemia, ED Cystitis Female Adult Prescriptions: No Action nitrofurantoin monohyd/m-cryst [Macrobid] 100 mg capsule 100 mg PO Q12H 7 Days Qty: 14 0RF Rx Instructions: must administer with a meal/food Primary Care Provider: Randell Bo Referrals: Randell Bo MD [Primary Care Provider] - 5-7 Days Print Language: Serbian Disposition Disposition: Home, Self Care
[2024-07-09] MEDS: 0.9% Normal Saline (1000mL) 1,000 ML 1000 ML IV (16:55)
[2024-07-09] MEDS: Acetaminophen 500 MG Tablet 1000 MG PO (16:55)
--- NOTE | 2024-07-09 17:00 | RAD_ITS ---
PROCEDURE: CHEST PA AND LATERAL 07/09/2024 REASON FOR EXAM: 48-year-old female, WEAKNESS, headache and chills, nausea and vomiting, body aches TECHNIQUE: Frontal and lateral views of the chest. COMPARISON: None. FINDINGS: Hardware: None. Heart: The heart size is normal. Mediastinum: The mediastinal contour is unremarkable. Lungs: No focal consolidation, pleural effusion or pneumothorax. Bones: The bones are unremarkable. RAD/Chest PA and Lateral IMPRESSION: NEGATIVE CHEST Reading Location: [id number]
[2024-07-09 17:04] LABS: Absolute Lymphocyte Count 0.47 X10^3/uL (0.83-4.51); Absolute Neutrophil Count 9.5 X10^3/uL (2.0-7.7); Basophil# 0.02 X10^3/uL; Basophil% 0.2 % (0-1); Hematocrit 33.7 % (37-47); Hemoglobin 11.3 g/dL (12.0-15.0); Lymphocyte # 0.47 X10^3/ul (0.83-4.51); Lymphocyte % 4.2 % (19-41); Mean Corp Hgb Conc 33.5 g/dL (32-36); Mean Corpuscular Volume 77.5 fL (81-99); Mean Platelet Vol. 10.6 fl (6.2-12.0); Monocyte# 1.16 X10^3/uL; Monocyte% 10.4 % (0-10); NRBC Flagged by Analyzer 0 % (0-5); Neutrophil # 9.51 X10^3/uL (2.7-7.7); Neutrophil % 84.8 % (47-70); POSITIVE DIFFERENTIAL YES; Platelet Count 139 K/mm3 (150-450); RBC Distribution Width CV 18.8 % (11.6-14.6); RBC Distribution Width SD 52.3 fl (35.1-43.9); Red Blood Count 4.35 M/mm3 (4.2-5.4); White Blood Count 11.2 K/mm3 (4.4-11.0)
[2024-07-09 17:29] LABS: Anion Gap 12 (5-15); BUN 11 mg/dL (4-19); BUN/Creat Ratio 13.3 RATIO (10-20); Calcium,Total 10.3 mg/dL (7.6-11.0); Carbon Dioxide 21.6 mmol/L (21.0-32.0); Chloride 99 mmol/L (98-108); EST Glomerular Filtration Rate 92 (>60); Estimated Creatinine Clearance 89.57 ml/min (50-250); Glucose 115 mg/dL (70-99); Potassium 3.1 mmol/L (3.3-5.1); Sodium Level 133 mmol/L (133-145)
[2024-07-09 17:35] VITALS: BP 107/74; BP 109/72; BP 119/66; PULSE 109; PULSE 117; PULSE 121
[2024-07-09 18:02] VITALS: BP 106/62; O2SAT 97
[2024-07-09 18:16] VITALS: TEMP 37.4
[2024-07-09] MEDS: Potassium Chloride Oral Tablet 20 MEQ 40 MEQ PO (19:04)
[2024-07-09 19:08] VITALS: BP 102/74; PULSE 68; RESP 16; TEMP 36.9; O2SAT 97
== END 2024-07-09 19:08 | disposition home or self-care (01) ==
PROVIDERS: Emergency Provider Emergency Medicine; PCP Family Medicine; Visit Provider Emergency Medicine
DX: N39.0 Urinary tract infection, site not specified (principal); R51.9 Headache, unspecified; E87.6 Hypokalemia; R11.2 Nausea with vomiting, unspecified; R50.9 Fever, unspecified
CPT/HCPCS: 71046; 80048; 85025; 87631; 96360; 99285; A4216

== ENCOUNTER → 2024-08-02 | Outpatient (CLI) | payer BC, SELFPAY | END | disposition home or self-care (01) | LOC: LABSPEC 11:28 | PROVIDERS: PCP Family Medicine; Visit Provider Family Medicine | DX: N39.0 Urinary tract infection, site not specified (principal) | CPT/HCPCS: 87086; 87088; 87186 ==

== ENCOUNTER → 2024-10-04 | Outpatient (CLI) | payer BC, SELFPAY ==
[2024-10-04 10:36] LABS: Absolute Lymphocyte Count 1.91 X10^3/uL (0.83-4.51); Absolute Neutrophil Count 2.1 X10^3/uL (2.0-7.7); Basophil# 0.02 X10^3/uL; Basophil% 0.4 % (0-1); Eosinophil# 0.11 X10^3/uL; Eosinophils% 2.4 % (0-5); Hematocrit 35.1 % (37-47); Hemoglobin 10.5 g/dL (12.0-15.0); Lymphocyte # 1.91 X10^3/ul (0.83-4.51); Lymphocyte % 41.8 % (19-41); Mean Corp Hgb Conc 29.9 g/dL (32-36); Mean Corpuscular Hgb 23.2 pg (27.0-32.0); Mean Corpuscular Volume 77.5 fL (81-99); Mean Platelet Vol. 9.8 fl (6.2-12.0); Monocyte# 0.38 X10^3/uL; Monocyte% 8.3 % (0-10); NRBC Flagged by Analyzer 0 % (0-5); Neutrophil # 2.13 X10^3/uL (2.7-7.7); Neutrophil % 46.7 % (47-70); Platelet Count 255 K/mm3 (150-450); RBC Distribution Width CV 15.5 % (11.6-14.6); RBC Distribution Width SD 43.3 fl (35.1-43.9); Red Blood Count 4.53 M/mm3 (4.2-5.4); White Blood Count 4.6 K/mm3 (4.4-11.0)
[2024-10-04 11:40] LABS: ALB/GLOB Ratio 1.6 RATIO (0.9-2.4); AST(SGOT) 20 U/L (<=31); Alanine Aminotransfer ALT/SGPT 22 U/L (<=34); Albumin, Serum 4.2 g/dL (3.5-5.0); Alkaline Phosphatase 103 U/L (35-104); Anion Gap 9 (5-15); BUN 10 mg/dL (4-19); BUN/Creat Ratio 14.3 RATIO (10-20); Calcium,Total 10.6 mg/dL (7.6-11.0); Carbon Dioxide 23.9 mmol/L (21.0-32.0); Chloride 106 mmol/L (98-108); Cholesterol 190 mg/dL (<=200); Creatinine, Serum 0.71 mg/dL (0.70-1.20); EST Glomerular Filtration Rate 105 (>60); Globulin 2.6 g/dL (2.2-4.2); Glucose 104 mg/dL (70-99); High Density Lipoprotein 58 mg/dL; Low Density Lipoprotein Calc. 119 mg/dL; Potassium 3.7 mmol/L (3.3-5.1); Protein, Total 6.8 g/dL (5.9-8.4); Sodium Level 139 mmol/L (133-145); Total Bilirubin 0.38 mg/dL (0.00-1.30); Triglycerides 63 mg/dL; Very Low Density Lipoprotein 13 mg/dL (5-40); Vitamin D,25 Hydroxy 29.7 ng/mL (30-100); cholesterol:hdl ratio screen 3.25
[2024-10-04 13:24] LABS: Hemoglobin A1c 5.2 % (<=5.6)
--- OUTSIDE RECORDS SUMMARY | 2024-10-04 19:24 | XMS RPT_ITS | CCD ---
Author Organization [facility] CliniSywv Care Team Providers Care Clinical Genetics Laboratory Chief Name Role Phone WIL MCLAINIAN Attending Unavailable BERNABE GARCIA Primary Care Unavailable Dr. Wisam Bo Primary Care Provider [phone] Dr. Wisam Bo Referring Provider CATHERINE Samson Attending Provider Dr. Wisam Bo Primary Care Provider Dr. Wisam Bo Referring Provider CATHERINE Samson Attending Provider Dr. Randell Bo MD Primary Care Provider Dr. Randell Bo MD Referring Provider Eric Jackson Attending Provider Dr. Bo Ring DO Emergency Provider Dr. Bo Ring DO Attending Provider Dr. Bernabe Garcia MD Attending Provider Bo Ring Attending Unavailable Randell Bo Primary Care Unavailable Bernabe Garcia Attending Unavailable Randell Bo Primary Care Unavailable Randell Bo Primary Care Unavailable Randell Bo Referring Unavailable Roof Eric ART Attending Unavailable Allergies Allergy Classification Reported Allergen(s) Allergy Type Date of Onset Reaction(s) Facility (8 sources) pineapple Allergy to substance 01-29-2022 [facility] (1 source) pineapple Drug allergy (disorder) 07-09-2024 [facility] Repository Medications Current Medications Medication Drug Class(es) Dates Sig (Normalized) Sig (Original) [place] (Nk) (2 sources) Start: 05-29-2023 [place] (Nk) A ctive May 29, 2023 1:00am Start: 05-29-2023 [place] (Nk) A ctive May 29, 2023 12:00am Completed/Discontinued Medications Medication Drug Class(es) Dates Sig (Normalized) Sig (Original) docusate sodium 100 mg oral capsule (10 sources) Start: 12-01-2018 End: 05-29-2023 take 1 capsule by mouth twice daily as needed for constipation Docusate Sodium 100 MG capsule Discontinued 100 mg PO TWICE DAILY NEEDED as needed for Constipation 60 December 01, 2018 12:00am May 29, 2023 12:19pm Iron (10 sources) Start: 12-01-2018 End: 05-29-2023 take 325 mg by mouth once daily Iron Discontinued 325 mg PO DAILY December 01, 2018 12:00am May 29, 2023 12:19pm Start: 12-01-2018 End: 05-29-2023 take 325 mg by mouth once daily Iron Discontinued 325 MG PO DAILY December 01, 2018 12:00am May 29, 2023 12:19pm Start: 12-01-2018 End: 05-29-2023 take 325 mg by mouth once daily Iron Discontinued 325 MG PO DAILY November 30, 2018 11:00pm May 29, 2023 11:19am Start: 12-01-2018 take 325 mg by mouth once daily Iron Active 325 MG PO DAILY November 30, 2018 11:00pm Start: 12-01-2018 take 325 mg by mouth once daily Iron Active 325 MG PO DAILY December 01, 2018 12:00am labetalol hydrochloride 200 mg oral tablet (20 sources) beta-Adrenergic Gagan Start: 11-15-2018 End: 05-29-2023 Labetalol 200 MG tablet Discontinued 100 mg PO TWICE A DAY November 15, 2018 1:57pm May 29, 2023 12:19pm Start: 11-15-2018 End: 05-29-2023 take 100 mg by mouth twice daily Labetalol Discontinued 100 MG PO TWICE A DAY November 15, 2018 1:57pm May 29, 2023 12:19pm Start: 01-15-2015 End: 11-15-2018 take 1 tablet by mouth twice daily Labetalol 200 MG tablet Discontinued 200 mg PO TWICE A DAY 60 January 15, 2015 12:00am November 15, 2018 1:57pm nitrofurantoin, macrocrystals 25 mg / nitrofurantoin, monohydrate 75 mg oral capsule (2 sources) Nitrofuran Antibacterial Start: 07-08-2024 End: 07-15-2024 take 1 capsule by mouth every twelve hours at mealtime Nitrofurantoin Monohyd/M-Cryst (Macrobid) 100 mg capsule Discontinued 100 mg PO Q12H 14 7 July 08, 2024 12:00am July 14, 2024 12:00am July 15, 2024 12:14am must administer with a meal/food oxyCODONE hydrochloride 5 mg oral tablet (10 sources) Opioid Agonist Start: 12-01-2018 End: 12-09-2018 take 1 tablet by mouth every six hours as needed for pain Oxycodone 5 MG tablet Discontinued 5 mg PO EVERY 6 HOURS NEEDED as needed for Severe Pain (6-10/10) 20 December 01, 2018 December 07, 2018 12:00am December 09, 2018 12:09am Vit,[id number] c (Prenatabs Fa) 1 TABLET tablet (10 sources) Start: 01-15-2015 End: 05-29-2023 take 1 tablet by mouth once daily Vit,[id number] ic (Prenatabs Fa) 1 TABLET tablet Discontinued 1 {tbl} PO DAILY January 15, 2015 12:00am May 29, 2023 12:19pm Start: 01-15-2015 End: 05-29-2023 take 1 tablet by mouth once daily Vit,[id number]-Ecqil (Prenatab s Fa) 1 TABLET tablet Discontinued 1 TABLET PO DAILY January 15, 2015 12:00am May 29, 2023 12:19pm Start: 01-15-2015 End: 05-29-2023 take 1 tablet by mouth once daily Vit,[id number]-Uiovj (Prenatab s Fa) 1 TABLET tablet Discontinued 1 TABLET PO DAILY January 14, 2015 11:00pm May 29, 2023 11:19am Start: 01-15-2015 take 1 tablet by yanni th once daily Vit,[id number]-Gccj-Prqdu (Prenatab s Fa) 1 TABLET tablet Active 1 TABLET PO DAILY January 14, 2015 11:00pm Start: 01-15-2015 take 1 tablet by yanni th once daily Vit,[id number]-Hqnvk (Prenatab s Fa) 1 TABLET tablet Active 1 TABLET PO DAILY January 15, 2015 12:00am sulfacetamide sodium 100 mg/ml ophthalmic solution (8 sources) Sulfonamide Antibacterial Start: 02-12-2022 End: 02-19-2022 Sulfacetamide Sodium 10 % drops Discontinued 1 NMA OPHTHALMIC Q3H 15 7 February 12, 2022 12:00am February 18, 2022 1:00am February 19, 2022 1:05am Problems Active Problems Problem Classification Problem Date Documented Da te Episodic/Chronic Fever of unknown origin (3 sources) Fever; Translations: [Fever, unspecified] Onset: 07-11-2024 07-09-2024 Episodic Fluid and electrolyte disorders (2 sources) Hypokalemia; Translations: [Hypokalemia] 07-09-2024 Episodic Genitourinary symptoms and ill-defined conditions (1 source) Dysuria; Translations: [Dysuria] Onset: 07-09-2024 Episodic Hypertension complicating ; childbirth and the puerperium (10 sources) Pre-eclampsia added to pre-existing hypertension; Translations: [Pre-existing hypertension with pre-eclampsia, unspecified trimester] 12-01-2018 Chronic Inflammation; infection of eye (except that caused by tuberculosis or sexually transmitteddisease) (8 sources) Bacterial conjunctivitis; Translations: [Unspecified conjunctivitis] 02-12-2022 Episodic Influenza (6 sources) Influenza due to Influenza B virus; Translations: [Influenza due to other identified influenza virus with other respiratory manifestations] 05-29-2023 Episodic Other complications of (10 sources) Suspected macroscopic fetus; Translations: [Maternal care for excessive growth, third trimester, not applicable or unspecified] 12-01-2018 Episodic Unclassified (4 sources) Patient condition finding; Translations: [No active medical problems] 05-29-2023 Urinary tract infections (6 sources) Urinary tract infectious disease; Translations: [Urinary tract infection, site not specified] Onset: 07-09-2024 07-08-2024 Episodic Past or Other Problems Problem Classification Problem Date Documented Da te Episodic/Chronic Fracture of lower limb (2 sources) Nondisplaced transverse fracture of shaft of left tibia, initial encounter for closed fracture; Translations: [Nondisplaced transverse fracture of shaft of left tibia, initial encounter for closed fracture] Onset: 08-28-2022 Episodic Results Test Name Value Interpretation Reference Range Facility Urine Cultureon 08-04-2024 [facility] Presumptive E. coli [place] Count 50,000-80,000 Presumptive E. coli: REACTION Ampicillin Islt CHUCKY >=32 Ampicillin+Sulbac Islt CHUCKY 16 I Cefepime Islt CHUCKY <=0.12 S cefTRIAXone Islt CHUCKY <=0.25 S Ciprofloxacin Islt CHUCKY 0.5 I B-Lactamase Extended Susc Islt NEG Gentamicin Islt CHUCKY <=1 S levoFLOXacin Islt CHUCKY 1 I Meropenem Islt CHUCKY <=0.25 S Nitrofurantoin Islt CHUCKY <=16 S Pip+Tazo Islt CHUCKY <=4 S TMP SMX Islt CHUCKY >=320 R Normal [facility] Comment on above: Performed By: #### M 100.2200 #### [facility] [address] [place], [address] Urine cultureOrdered By: Dee Garcia on 08-02-2024 Bacteria identified Cx Nom (U) Presumptive E. coli Abnormal [facility] Absolute neutrophil countOrd ered By: Bo Ring on 07-09-2024 Neutrophils (Bld) [#/Vol] 9.5 10*3/uL High 2.0-7.7 [facility] Anion gap in Serum or Plasma Ordered By: Bo Ring on 07-09-2024 Anion gap [Moles/Vol] 12 mmol/L 5- [facility] BUN/creatinine ratioOrdered By: Bo Ring on 07-09-2024 Urea nitrogen/Creatinine [Mass ratio] 13.3 mg/mg 10- [facility] Basic Metabolic Profile (BMP )on 07-09-2024 BUN/CRE 13.3 RATIO Normal - [facility] Comment on above: Performed By: #### L 100.0100, L500.2500 #### [facility] [address], [place], [id number] Calcium [Mass/Vol] 10.3 mg/dL Normal 7.6-11.0 [facility] Comment on above: Performed By: #### L 100.0100, L500.2500 #### [facility] [address] [place], [address] Chloride [Moles/Vol] 99 mmol/L Normal 98-108 [facility] Comment on above: Performed By: #### L 100.0100, L500.2500 #### [facility] [address] [place], [address] CO2 [Moles/Vol] 21.6 mmol/L Normal 21.0-32.0 [facility] Comment on above: Performed By: #### L 100.0100, L500.2500 #### [facility] [address] [place], [address] Creatinine [Mass/Vol] 0.80 mg/dL Normal 0.70-1.20 [facility] Comment on above: Performed By: #### L 100.0100, L500.2500 #### [facility] [address] [place], [address] ECRCL 89.57 ml/min Normal 50-250 [facility] Comment on above: Performed By: #### L 100.0100, L500.2500 #### [facility] [address] [place], [address] GAP 12 Normal 5-15 [facility] Comment on above: Performed By: #### L 100.0100, L500.2500 #### [facility] [address] [place], [address] GFR/1.73 sq M.predicted among non-blacks MDRD (S/P/Bld) [Vol rate/Area] 92 mL/min/{1.73_m2} Normal >60 [facility] Comment on above: Result Comment: mL/m in/1.73m2 CKD-EPI Creatinine Equation (2020) Performed By: #### L 100.0100, L500.2500 #### [facility] [address] [place], [address] Glucose [Mass/Vol] 115 mg/dL High 70-99 [facility] Comment on above: Performed By: #### L 100.0100, L500.2500 #### [facility] [address] [place], [address] Potassium [Moles/Vol] 3.1 mmol/L Low 3.3-5.1 [facility] Comment on above: Performed By: #### L 100.0100, L500.2500 #### [facility] [address] [place], [address] Sodium [Moles/Vol] 133 mmol/L Normal 133-145 [facility] Comment on above: Performed By: #### L 100.0100, L500.2500 #### [facility] [address] [place], [address] Urea nitrogen [Mass/Vol] 11 mg/dL Normal 4-19 [facility] Comment on above: Performed By: #### L 100.0100, L500.2500 #### [facility] [address] [place], [address] Basophil percentageOrdered B y: Bo Ring on 07-09-2024 Basophils/100 WBC (Bld) 0.2 % 0-1 [facility] CBC W/Diff, Automatedon 06-11 Absolute Lymph 0.47 X10 3/uL Low 0.83-4.51 [facility] Comment on above: Performed By: #### L 100.0100, L500.2500 #### [facility] [address] [place], [address] Absolute Neut 9.5 X10 3/uL High 2.0-7.7 [facility] Comment on above: Performed By: #### L 100.0100, L500.2500 #### [facility] [address] [place], [address] Basophils/100 WBC (Bld) 0.2 % Normal 0-1 [facility] Comment on above: Performed By: #### L 100.0100, L500.2500 #### [facility] [address] [place], [address] Eosinophils/100 WBC (Bld) 0.0 % Normal 0-5 [facility] Comment on above: Performed By: #### L 100.0100, L500.2500 #### [facility] [address] [place], [address] Erythrocyte distribution width (RBC) [Ratio] 18.8 % High 11.6-14.6 [facility] Comment on above: Performed By: #### L 100.0100, L500.2500 #### [facility] [address] [place], [address] Hematocrit (Bld) [Volume fraction] 33.7 % Low 37-47 [facility] Comment on above: Performed By: #### L 100.0100, L500.2500 #### [facility] [address] [place], [address] Hemoglobin (Bld) [Mass/Vol] 11.3 g/dL Low 12.0-15.0 [facility] Comment on above: Performed By: #### L 100.0100, L500.2500 #### [facility] [address] [place], [address] IG% 0.400 Normal 0.0-0.9 [facility] Comment on above: Result Comment: IG% - Immature Granulocytes (promyelocytes, myelocytes and metamyelocytes) > 1% indicates that a LEFT SHIFT is Present. Performed By: #### L 100.0100, L500.2500 #### [facility] [address] [place], [address] Lymphocytes/100 WBC (Bld) 4.2 % Low 19-41 [facility] Comment on above: Performed By: #### L 100.0100, L500.2500 #### [facility] [address] [place], [address] MCH (RBC) [Entitic mass] 26.0 pg Low 27.0-32.0 [facility] Comment on above: Performed By: #### L 100.0100, L500.2500 #### [facility] [address] [place], [address] MCHC (RBC) [Mass/Vol] 33.5 g/dL Normal 32-36 [facility] Comment on above: Performed By: #### L 100.0100, L500.2500 #### [facility] [address] [place], [address] MCV (RBC) [Entitic vol] 77.5 fL Low 81-99 [facility] Comment on above: Performed By: #### L 100.0100, L500.2500 #### [facility] [address] [place], [address] Monocytes/100 WBC (Bld) 10.4 % High 0-10 [facility] Comment on above: Performed By: #### L 100.0100, L500.2500 #### [facility] [address] [place], [address] Neutrophils/100 WBC (Bld) 84.8 % High 47-70 [facility] Comment on above: Performed By: #### L 100.0100, L500.2500 #### [facility] [address] [place], [address] Nucleated RBC (Bld) [#/Vol] 0 10*3/uL Normal 0-5 [facility] Comment on above: Performed By: #### L 100.0100, L500.2500 #### [facility] [address] [place], [address] Platelet mean volume (Bld) [Entitic vol] 10.6 fL Normal 6.2-12.0 [facility] Comment on above: Performed By: #### L 100.0100, L500.2500 #### [facility] [address] [place], [address] Platelets (Bld) [#/Vol] 139 10*3/uL Low 150-450 [facility] Comment on above: Performed By: #### L 100.0100, L500.2500 #### [facility] [address] [place], [address] RBC (Bld) [#/Vol] 4.35 10*6/uL Normal 4.2-5.4 [facility] Comment on above: Performed By: #### L 100.0100, L500.2500 #### [facility] [address] [place], [address] RDW SD 52.3 fl High 35.1-43.9 [facility] Comment on above: Performed By: #### L 100.0100, L500.2500 #### [facility] [address] [place], [address] WBC (Bld) [#/Vol] 11.2 10*3/uL High 4.4-11.0 [facility] Comment on above: Performed By: #### L 100.0100, L500.2500 #### [facility] [address] [place], [address] Carbon dioxide, total [Moles /volume] in Central venous bloodOrdered By: Bo Ring on 07-09-2024 CO2 [Moles/Vol] 21.6 mmol/L 21.0-32.0 [facility] Chest PA and Lateralon 07-09 Chest PA and Lateral [facility] [address] [place] [address] Chest PA and Lateral MR#: [id number] Acct: [id number] Name: AGGIE DONG Rep #: [id number] : 1975 F 48 From: Meenu Santamaria nd, MD PCP: Dr. Randell Bo MD Status: [facility] ER Study: Chest PA and Lateral Date of Exam: 07/09/24 Exam# [id number] Ordering Dr: Bo Ring DO PROCEDURE: CHEST PA AND LATERAL 07/09/2024 REASON FOR EXAM: 48-year-old female, WEAKNESS, headache and chills, nausea and vomiting, body aches TECHNIQUE: Frontal and lateral views of the chest. COMPARISON: None. FINDINGS: Hardware: None. Heart: The heart size is normal. Mediastinum: The mediastinal contour is unremarkable. Lungs: No focal consolidation, pleural effusion or pneumothorax. Bones: The bones are unremarkable. RAD/Chest PA and Lateral IMPRESSION: NEGATIVE CHEST Reading Location: [facility] CC: Dr. Randell Bo MD; Dr. Bo Ring DO Beverage Manager: Signed Normal [facility] Chloride assayOrdered By: Roc Ring on 07-09-2024 Chloride [Moles/Vol] 99 mmol/L 98-108 [facility] Emergency Department Summary on 07-09-2024 Emergency Department Summary [facility] Medical Records Department [address] [place] [id number] Emergency Department Summary 07/09/24 MR#: [id number] Acct: [id number] Name: AGGIE DONG Rep #: [id number] : 1975 48 From: Bo Ring DO PCP: Dr. Randell Bo MD Status:[facility] ER Location: ED HPI History of Present Illness Chief Complaint: General Illness Informant: patient Onset/Context/Mela foy Onset: Days Context: Gradual Onset Timing: Continuous Quality: Aching Location: Generalized Worsened by: Nothing Relieved by: Laying in a bathtub Narrative Narrative: Patient presents with generalized aching and chills. Patient states she was seen at urgent care yesterday was diagnosed with a urinary tract infection. Patient states she has been taking the antibiotics that were prescribed. Patient states she does not feel any better. Patient also admits to some rhinorrhea. Patient admits to headache and back pain. Patient admits to some nausea, vomiting, and abdominal pain. Patient denies any chest pain or shortness of breath. [facility] Medical History No active medical problems no medical history Home Medications ???Medication ???Instructions ???Recorded ???Last Taken ???Type nitrofurantoin 100 mg PO Q12H 7 days #14 caps Unknown Rx monohydrate/macrocr ystals 100 mg capsule (Macrobid) Allergy/AdvReac Type Severity Reaction Status Date / Time pineapple Allergy Mild Rash Verified 07/09/24 16:03 Family History Other Heart disease Surgical History History of 2 sections Social History household members: spouse housing: house Smoking Status: Never smoker ROS ROS ED Constitutional Constitutional ED: Reports chills and subjective; Denies fever(s) Eyes Eyes: Denies blurry vision or change in vision ENT ENT ED: Reports rhinorrhea; Denies sore throat Cardiovascular Cardiovascular: Denies chest pain or palpitations Respiratory/Chest Respiratory/Chest: Denies cough or dyspnea Gastrointestinal Gastrointestinal: Reports abdominal pain, nausea and vomiting Genitourinary Genitourinary ED: Reports hematuria; Denies dysuria Musculoskeletal Musculoskeletal: Reports back pain; Denies neck pain Integumentary Denies abscess or rash Neurologic Neurologic: Reports headache(s); Denies weakness Allergic/Immunologi c Allergic/Immunologi c ED: Denies mouth swelling or urticaria EXAM Physical Exam Const Vital Signs: 07/09/24 16:03 07/09/24 16:25 07/09/24 17:35 Temperature 102.8 F H Temperature Source Oral Pulse Rate 131 H Pulse Rate [Lying] 109 H Pulse Rate [Sitting (for 1 minute prior to obtaining)] 117 H Pulse Rate [Standing (for 1 minute prior to obtaining)] 121 H Respiratory Rate 115 H Respiratory Effort Normal Non-Labored Respiratory Pattern Normal Blood Pressure 131/100 H Blood Pressure [Lying] 119/66 Blood Pressure [Sitting (for 1 minute prior to obtaining)] 109/72 Blood Pressure [Standing (for 1 minute prior to obtaining)] 107/74 Blood Pressure Mean 110 Blood Pressure Mean [Lying] 83 Blood Pressure Mean [Sitting (for 1 minute prior to obtaining)] 84 Blood Pressure Mean [Standing (for 1 minute prior to obtaining)] 85 Pulse Ox 100 Oxygen Delivery Method Room Air 07/09/24 18:02 07/09/24 18:16 Temperature 99.4 F H Temperature Source Oral Pulse Rate Pulse Rate [Lying] Pulse Rate [Sitting (for 1 minute prior to obtaining)] Pulse Rate [Standing (for 1 minute prior to obtaining)] Respiratory Rate Respiratory Effort Respiratory Pattern Blood Pressure 106/62 Blood Pressure [Lying] Blood Pressure [Sitting (for 1 minute prior to obtaining)] Blood Pressure [Standing (for 1 minute prior to obtaining)] Blood Pressure Mean 76 Blood Pressure Mean [Lying] Blood Pressure Mean [Sitting (for 1 minute prior to obtaining)] Blood Pressure Mean [Standing (for 1 minute prior to obtaining)] Pulse Ox 97 Oxygen Delivery Method Room Air Positive well nourished and well developed General Appearance ED: well developed and NAD HEENT Reports moist mucous membranes Neck supple and no JVD Resp normal respiratory effort and clear to auscultation bilaterally Cardio regular rate and regular rhythm GI non-distended Palpation: soft and tender LLQ, RLQ and suprapubic; Negative for guarding or rebound tenderness present Neuro oriented x3, CN's II-XII intact bilaterally and no sensory deficits noted Sensorium / Orientation: alert Motor Exam: strength 5/5 throughout Psych mental status radha (more content not included)... Normal [facility] Eosinophil percentageOrdered By: Bo Ring on 07-09-2024 Eosinophils/100 WBC (Bld) 0.0 % 0-5 [facility] Erythrocyte distribution wid th ratioOrdered By: Bo Ring on 07-09-2024 Erythrocyte distribution width (RBC) [Ratio] 18.8 % High 11.6-14.6 [facility] Erythrocyte distribution wid th standard deviationOrdered By: Bo Ring on 07-09-2024 Erythrocyte distribution width (RBC) [Entitic vol] 52.3 fL High 35.1-43.9 [facility] Estimation of creatinine yuri aranceOrdered By: Bo Ring on 07-09-2024 Estimated Creatinine Clearance Calc 89.57 ml/min 50-250 [facility] GFR/1.73 sq M.predicted afsaneh g non-blacks MDRD (S/P/Bld) [Vol rate/Area]Ordered By: Bo Ring on 07-09-2024 Estimated GFR (MDRD) Non-Af Amer 92 >60 [facility] Comment on above: mL/min/1.73m2 CKD-EP I Creatinine Equation (2020) Hematocrit Auto (Bld) [Volum e fraction]Ordered By: Bo Ring on 07-09-2024 Hematocrit (Bld) [Volume fraction] 33.7 % Low 37-47 [facility] Hemoglobin measurementOrdere d By: Bo Ring on 07-09-2024 Hemoglobin (Bld) [Mass/Vol] 11.3 g/dL Low 12.0-15.0 [facility] Immature granulocytes/100 WB C Auto (Bld)Ordered By: Bo Ring on 07-09-2024 Immature granulocytes/100 WBC (Bld) 0.400 % 0.0-0.9 [facility] Comment on above: IG% - Immature Granu locytes (promyelocytes, myelocytes and metamyelocytes) > 1% indicates that a LEFT SHIFT is Present. Influenza virus A and B and SARS-CoV-2 (COVID-19) and Respiratory syncytial virus RNAOrdered By: Bo Ring on 07-09-2024 SARS-CoV-2 (COVID-19) RNA BENNETT+probe Ql (Unsp spec) [facility] Lymphocytes Auto (Unsp spec) [#/Vol]Ordered By: Bo Ring on 07-09-2024 Lymphocytes (Bld) [#/Vol] 0.47 10*3/uL Low 0.83-4.5 1 [facility] Lymphocytes/100 WBC Auto (Un sp spec)Ordered By: Bo Ring on 07-09-2024 Lymphocytes/100 WBC (Bld) 4.2 % Low 19-41 [facility] M100.678on 07-09-2024 M100.678 Pending SARS-CoV-2 (COVID 19) Negative INFLUENZA A Negative INFLUENZA B Negative RSV PCR Negative Normal [facility] Comment on above: Performed By: #### M 100.825 #### [facility] [address] [place], [address] MCV (mean corpuscular volume ) determinationOrdered By: Bo Ring on 07-09-2024 MCV (RBC) [Entitic vol] 77.5 fL Low 81-99 [facility] Mean corpuscular hemoglobin (MCH) determinationOrdered By: Bo Ring on 07-09-2024 MCH (RBC) [Entitic mass] 26.0 pg Low 27.0-32.0 [facility] Mean corpuscular hemoglobin concentration (MCHC) determinationOrdered By: Bo Ring on 07-09-2024 MCHC (RBC) [Mass/Vol] 33.5 g/dL 32-36 [facility] Mean platelet volume determi nationOrdered By: Bo Ring on 07-09-2024 Platelet mean volume (Bld) [Entitic vol] 10.6 fL 6.2-12.0 [facility] Monocyte percentageOrdered B y: Bo Ring on 07-09-2024 Monocytes/100 WBC (Bld) 10.4 % High 0-10 [facility] Neutrophil percentageOrdered By: Bo Ring on 07-09-2024 Neutrophils/100 WBC (Bld) 84.8 % High 47-70 [facility] Nucleated red blood cell per centageOrdered By: Bo Ring on 07-09-2024 Nucleated RBC/100 WBC (Bld) [Ratio] 0 % 0-5 [facility] Platelet countOrdered By: Roc Ring on 07-09-2024 Platelets (Bld) [#/Vol] 139 10*3/uL Low 150-450 [facility] Potassium (Unsp spec) [Mass/ Vol]Ordered By: Bo Ring on 07-09-2024 Potassium [Moles/Vol] 3.1 mmol/L Low 3.3-5.1 [facility] RBC Auto (Bld) [#/Vol]Ordere d By: Bo Ring on 07-09-2024 RBC (Bld) [#/Vol] 4.35 10*6/uL 4.2-5.4 [facility] Serum creatinine measurement (mass/volume)Ordered By: Bo Ring on 07-09-2024 Creatinine [Mass/Vol] 0.80 mg/dL 0.70-1.20 [facility] Serum glucose measurement (m ass/volume)Ordered By: Bo Ring on 07-09-2024 Glucose [Mass/Vol] 115 mg/dL High 70-99 [facility] Serum or plasma calcium roberto urement (mass/volume)Ordered By: Bo Ring on 07-09-2024 Calcium [Mass/Vol] 10.3 mg/dL 7.6-11.0 [facility] Serum or plasma urea nitroge n measurement (mass/volume)Ordered By: Bo Ring on 07-09-2024 Urea nitrogen [Mass/Vol] 11 mg/dL 4-19 [facility] Sodium levelOrdered By: Bo Ring on 07-09-2024 Sodium [Moles/Vol] 133 mmol/L 133-145 [facility] White blood cell (WBC) count Ordered By: Bo Ring on 07-09-2024 WBC (Bld) [#/Vol] 11.2 10*3/uL High 4.4-11.0 [facility] Laboratory - Chemistry and C hemistry - challengeOrdered By: Eric Cuba on 07-08-2024 Ketones Ql (U) Large (80+) [facility] pH (U) 5.0 [pH] [facility] Specific gravity (U) [Rel density] 1.025 [facility] Urobilinogen (U) [Mass/Vol] 0.7685374 mg/dL [facility] Laboratory - Hematology and Cell countsOrdered By: Eric Cuba on 07-08-2024 Hemoglobin Ql (U) Large [facility] Laboratory - Specimen inform ationOrdered By: Eric Cuba on 07-08-2024 Clarity (U) Cloudy [facility] Color (U) DARK YELLOW [facility] Laboratory - UrinalysisOrder ed By: Eric Cuba on 07-08-2024 Nitrite Ql (U) Positive [facility] Protein Ql (U) 1+ [facility] No Panel InformationOrdered By: Eric Cuba on 07-08-2024 Urine Leukocytes Positive [facility] Urine Non-Hemolyzed Blood Large [facility] Urgent Care Visit Reporton 0 07-08-2024 Urgent Care Visit Report [facility] [address], [address] [place] [address] OFFICE VISIT Date of Service: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 [employer] [id number] Unknown [employer] [id number] Unknown [facility] PACKAGE PLAN [id number] Unknown [facility] [employer] [id number] Unknown [facility] PACKAGE PLAN [id number] Unknown [id number] Unknown [id number] Unknown [id number] Social History Date Type Detail Facility Start: 12-01-2018 End: 05-29-2023 Tobacco smoking status NHIS Unknown if ever smoked [facility] Start: 1975 Sex Assigned At Female W [facility] Start: 07-09-2024 Tobacco smoking stat us PAIS Never smoked tobacco (finding) [facility] Start: 07-09-2024 End: 08-07-2024 Sex Female (finding) [facility] Mental Status Date Assessment Result Facility 07-09-2024 Cognitive function Level Of Cons ciousness Awake;Alert;Appropriate;Follow s Commands [facility] Work Phone: Radiology Diagnostic study note 07-09-2024 Note Date & Type Note Facility 07-09-2024 Radiology Diagnostic study note [facility] Imaging Services [address] [place], [place] [address] Chest PA and Lateral MR#: [id number] Acct: [id number] Name: AGGIE DONG Rep #: [id number] : 1975 F 48 From: Kimberly Mobley MD PCP: Dr. Randell Bo MD Status: REG ER Study:Chest PA and Lateral Date of Exam: 07/09/24 Exam# [id number] Ordering Dr: Bo Ring DO PROCEDURE: CHEST PA AND LATERAL 07/09/2024 REASON FOR EXAM: 48-year-old female, WEAKNESS, headache and chills, nausea and vomiting, body aches TECHNIQUE: Frontal and lateral views of the chest. COMPARISON: None. FINDINGS: Hardware: None. Heart: The heart size is normal. Mediastinum: The mediastinal contour is unremarkable. Lungs: No focal consolidation, pleural effusion or pneumothorax. Bones: The bones are unremarkable. RAD/Chest PA and Lateral IMPRESSION: NEGATIVE CHEST Reading Location: [id number] CC: Dr. Randell Bo MD; Dr. Bo Ring DO ~ Beverage Manager: Signed [facility] Evaluation note 07-08-2024 Note Date & Type Note Facility 07-08-2024 Evaluation note Diagnosis Onset Date Resolution UTI (urinary tract infection) acute July 08, 2024 11:23am [facility] Work Phone: Evaluation note Note Date & Type Note Facility Evaluation note No assessment information availa ble [facility] Work Phone: Evaluation note Note Date & Type Note Facility Evaluation note Diagnosis Onset Date Influenza B acute [facility] Work Phone: Reason for referral (narrative) Note Date & Type Note Facility Reason for referral (narrative) No reason for referral information available [facility] Work Phone: Advance Directives No Advanced Directives Records Found Advance Directive Response Recorded Date/ Time Living Will No December 01 11:43am Power of Nursing Department Chairperson No December 01 11:43am Advance Directive Response Recorded Date/ Time Living Will No December 01 10:43am Power of Nursing Department Chairperson No December 01 10:43am Advance Directive Response Recorded Date/ Time Living Will No July 09, 2024 4:25pm Do you have a Healthcare Power of Nursing Department Chairperson? No July 09, 2024 4:25pm Chief Complaint and Reason for Visit Chief Complaint SCREENING Chief Complaint SCREENING DIET COUNS & SURV Chief Complaint SCREENING DIET COUNS & SURV DIET COUNS & SURV MOODY/SORE THROAT/CONGESTION Reason for Visit Influenza B Chief Complaint SCREENING DIET COUNS & SURV DIET COUNS & SURV MOODY/SORE THROAT/CONGESTION DIET COUNS & SURV Reason for Visit Influenza B Chief Complaint Admit Date CONCERN FOR UTI July 08, 2024 11: 23am GENERAL July 09, 2024 4:0 2pm Reason for Visit Admit Date UTI (urinary tract infection) June 11:23am Summary Purpose Family History No Family History Records Found Relationship Condition Age at Onset Recorded Date/T clara Not Specified Cardiac disease Unknown Additional Source Comments Goals (unrecognized section and content) Goals may be documented in a n alternate sectionGoals may be documented in an alternate sectionGoals may be documented in an alternate sectionGoals may be documented in an alternate sectionGoals may be documented in an alternate sectionGoals may be documented in an alternate sectionGoals may be documented in an alternate sectionGoals may be documented in an alternate sectionGoals may be documented in an alternate section Care Teams (unrecognized sec tion and content) Team Status: Active Member Role Status Dates Dr. Bernabe Garcia MD Primary Care Provider Active Team Status: Inactive Member Role Status Dates Dr. Bernabe Garcia MD Primary Care Provider Active Dr. Wisam Bo MD Attending Provider, [facility] Provider Active Team Status: Active Member Role Status Dates Dr. Wisam Bo MD Primary Care Provider Activ e Team Status: Inactive Member Role Status Dates Dr. Wisam Bo MD Primary Care Provider, Atte nding Provider Active Team Status: Inactive Member Role Status Dates Dr. Wisam Bo MD Primary Care Provider, Attending Provider, Referring Provider Active Team Status: Inactive Member Role Status Dates Dr. Wisam Bo MD Primary Care Provider, Refe rring Provider Active Kellen Samson PHARMACY TECHNICIAN TRAINEE-C Attending Provider Active Team Status: Active Member Role Status Dates Dr. Randell Bo MD Primary Care Provider Acti ve Team Status: Inactive Member Role Status Dates Dr. Randell Bo MD Primary Care Provider Acti ve Start: July 08, 2024 End: July 08, 2024 Dr. Randell Bo MD Referring Provider Active Start: July 08, 2024 End: July 08, 2024 Eric Cuba NP, PHARMACY TECHNICIAN TRAINEE-C Attending Provider Active S tart: July 08, 2024 End: July 08, 2024 Team Status: Inactive Member Role Status Dates Dr. Randell Bo MD Primary Care Provider Acti ve Start: July 09, 2024 End: July 09, 2024 Dr. Bo Ring DO Emergency Provider Active Start: July 09, 2024 End: July 09, 2024 Team Status: Inactive Member Role Status Dates Dr. Randell Bo MD Primary Care Provider Acti ve Start: July 09, 2024 End: July 09, 2024 Dr. Bo Ring DO Attending Provider Active Start: July 09, 2024 End: July 09, 2024 Dr. Bo Ring DO Emergency Provider Active Start: July 09, 2024 End: July 09, 2024 Team Status: Inactive Member Role Status Dates Dr. Randell Bo MD Primary Care Provider Acti ve Start: August 02, 2024 End: August 02, 2024 Dr. Bernabe Garcia MD Attending Provider Active Start: August 02, 2024 End: August 02, 2024 INFORMATION SOURCE (unrecogn ized section and content) DATE CREATED AUTHOR 04/10/2023 [facility] DATE CREATED AUTHOR AUTHOR'S ORGANIZ ATION 08/08/2024 [facility] FOR RECORDS PERTAINING TO PATIENTS WHO ARE OR HAVE BEEN ENROLLED IN A CHEMICAL DEPENDENCY/SUBSTANCEABUSE PROGRAM, SOME INFORMATION MAY BE OMITTED. This clinical summary was aggregated from multiple sources. Caution should be exercised in using it in the provision of clinical care. This summary normalizes information from multiple sources, and as a consequence, information in this document may materially change the coding, format and clinical context of patient data. In addition, data may be omitted in some cases. CLINICAL DECISIONS SHOULD BE BASED ON THE PRIMARY CLINICAL RECORDS. [facility] provides no warranty or guarantee of the accuracy or completeness of information in this document.
== END | disposition home or self-care (01) ==
LOC: MTLAB 09:04
PROVIDERS: PCP Family Medicine; Referring Provider Nurse Practitioner Family; Visit Provider Nurse Practitioner Family
DX: F41.1 Generalized anxiety disorder (principal); Z13.220 Encounter for screening for lipoid disorders
CPT/HCPCS: 36415; 80053; 80061; 82306; 83036; 84443; 85025

== ENCOUNTER → 2024-10-22 | Outpatient (CLI) | payer BC, SELFPAY ==
[2024-10-25 19:08] LABS: HPV APTIMA, High Risk Negative (Negative)
== END | disposition home or self-care (01) ==
PROVIDERS: PCP Family Medicine; Referring Provider Nurse Practitioner Family; Visit Provider Nurse Practitioner Family
DX: Z12.4 Encounter for screening for malignant neoplasm of cervix (principal)
CPT/HCPCS: 87624; 88175; G0145

== ENCOUNTER → 2024-10-23 | Outpatient (CLI) | payer BC, SELFPAY ==
--- NOTE | 2024-10-23 13:49 | BI_ITS ---
EXAM: SCRN MAMM (CAD)W/PANKAJ BILAT DATE: 10/23/2024 CLINICAL HISTORY: F, Age 48 y/o , SCREENING No family history. TECHNIQUE: SCRN MAMM (CAD)W/PANKAJ BILAT COMPARISON: Prior exam(s) dated March 18, 2023.. FINDINGS: TISSUE DENSITY: There are scattered areas of fibroglandular density. Bilateral Breast Mammographic Findings: No significant masses, calcifications or other abnormalities are identified. Stable benign-appearing bilateral axillary lymph nodes. No suspicious masses, areas of developing architectural distortion, or suspicious calcifications. There has been no significant interval change. BI/SCRN MAMM (CAD)W/PANKAJ BILAT IMPRESSION: Stable examination. OVERALL FINAL ASSESSMENT BI-RADS 2: BENIGN RECOMMENDATION: Routine annual follow-up in 1 Year A letter with findings and recommendations will be mailed to the patient. Reading Location: [id number]
--- NOTE | 2024-10-23 13:49 | BI_ITS ---
EXAM: SCRN MAMM (CAD)W/PANKAJ BILAT DATE: 10/23/2024 CLINICAL HISTORY: F, Age 48 y/o , SCREENING No family history. TECHNIQUE: SCRN MAMM (CAD)W/PANKAJ BILAT COMPARISON: Prior exam(s) dated March 18, 2023.. FINDINGS: TISSUE DENSITY: There are scattered areas of fibroglandular density. Bilateral Breast Mammographic Findings: No significant masses, calcifications or other abnormalities are identified. Stable benign-appearing bilateral axillary lymph nodes. No suspicious masses, areas of developing architectural distortion, or suspicious calcifications. There has been no significant interval change. BI/SCRN MAMM (CAD)W/PANKAJ BILAT IMPRESSION: Stable examination. OVERALL FINAL ASSESSMENT BI-RADS 2: BENIGN RECOMMENDATION: Routine annual follow-up in 1 Year A letter with findings and recommendations will be mailed to the patient. Reading Location: [id number]
== END | disposition home or self-care (01) ==
LOC: OPBI 13:48
PROVIDERS: PCP Family Medicine; Referring Provider Nurse Practitioner Family; Visit Provider Nurse Practitioner Family
DX: Z12.31 Encounter for screening mammogram for malignant neoplasm of breast (principal)
CPT/HCPCS: 77063; 77067